=== PATIENT | female | born 1950 | race Caucasian/White ===

== ENCOUNTER 2016-11-19 16:03 | Emergency (ER) | payer OTHER ==
[2016-11-19 16:16] VITALS: BP 103/50; PULSE 70; RESP 18; TEMP 98.7; O2SAT 96
[2016-11-19 16:24] LABS: COLOR YELLOW; LEUKOCYTE ESTERASE,URINE NEGATIVE (NEGATIVE); NITRITE,URINE NEGATIVE (NEGATIVE); PH,URINE 5.5 (5.0-7.5)
[2016-11-19 16:30] LABS: RBC,URINE OCCASIONAL /hpf (0-3); WBC,URINE NONE SEEN /hpf (0-3)
--- NOTE | 2016-11-19 16:48 | UCPHY ---
H & P Time Seen by Provider: 11/19/16 16:06 Patient Type: Established HPI/ROS: HPI Right flank pain, urinary complaints. 66-year-old female by private vehicle. She complains of right-sided flank pain as well as increased frequency with urination and some burning with urination ongoing since November 11. She reports it has gotten slightly worse. She reports having chills an intermittent fever as well. She denies other complaints. ROS: Constitutional: As above. No weakness. Eyes: No discharge. No changes in vision. ENT: No sore throat. No nasal congestion or rhinorrhea. Respiratory: No cough. No shortness of breath. Cardiac: No chest pain, no palpitations. Gastrointestinal: No abdominal pain, no vomiting, no diarrhea. Genitourinary: No hematuria. as above. Musculoskeletal: As above. No neck pain. No myalgias or arthralgias. Skin: No rashes. Neurological: No headache. No focal weakness or altered sensation. Past medical history: High cholesterol. Social history: Here by herself. Physical Exam: General Appearance: Alert, no distress. This patient is responding to questions appropriately and in full sentences. This patient appears well- hydrated and well-nourished. Eyes: Pupils equal and round no pallor or injection. No lid edema, erythema or injection. Gastrointestinal: Abdomen is soft and nontender, no masses, bowel sounds normal. No focal tenderness at McBurney's point. No Allen sign. Neurological: Motor sensory function is grossly intact. Cranial nerves are normal. Gait is normal. Skin: Warm and dry, no rashes. Musculoskeletal: No CVA tenderness on palpation. Extremities are symmetrical. All joints range without pain or impingement. Psychiatric: No agitation. No depression. Database: EKG: Imaging: Procedures: Emergency department course: Urine sample obtained. Her vital signs have been reviewed. She is afebrile. She declined any pain medication. 4:50 p.m., results of urinalysis discussed with the patient. Urinalysis does not indicate infection. However, the patient clinically presents as a urinary tract infection. I discussed the pros and cons of starting her on an antibiotic. We will start her on Keflex at urgent care and she will be provided with a prescription for this medication. Plan will be to have her follow up with her primary care physician, Dr. Dalal, on Thursday for re- evaluation or return here for re-evaluation. Immediate return to Urgent Care/ emergency department precautions were discussed with her. She feels comfortable with this plan. All of her questions were answered. She was discharged in good condition. Differential Diagnosis: The differential diagnosis on this patient includes but is not limited to urinary tract infection. This represents a partial list of diagnoses considered. These considerations are based on history, physical exam, past history, reassessment and diagnostic testing. Smoking Status: Never smoked Constitutional: Initial Vital Signs Temperature (C) 37.1 C 11/19/16 16:14 Heart Rate 70 11/19/16 16:14 Respiratory Rate 18 11/19/16 16:14 Blood Pressure 103/50 L 11/19/16 16:14 O2 Sat (%) 96 11/19/16 16:14 Allergies/Adverse Reactions: No Known Allergies Allergy (Unverified 02/20/16 08:24) Home Medications: Medication Instructions Recorded Cephalexin [Keflex (*)] 500 mg PO Q6 7 Days 11/19/16 Gemfibrozil 11/19/16 Medical Decision Making - Data Points Laboratory Results: 11/19/16 16:20 Urine Color YELLOW Urine Appearance CLEAR Urine pH 5.5 (5.0-7.5) Ur Specific [place] <= 1.005 (1.002-1.030) Urine Protein NEGATIVE (NEGATIVE) Urine Ketones NEGATIVE (NEGATIVE) Urine Blood TRACE H (NEGATIVE) Urine Nitrate NEGATIVE (NEGATIVE) Urine Bilirubin NEGATIVE (NEGATIVE) Urine Urobilinogen 0.2 EU (0.2-1.0) Ur Leukocyte Esterase NEGATIVE (NEGATIVE) Urine RBC OCCASIONAL /hpf (0-3) Urine WBC NONE SEEN /hpf (0-3) Ur Epithelial Cells NONE SEEN /lpf (NONE-1+) Ur Renal Epithelial Cell Cancelled Urine Crystals Cancelled Ammonium Urate Crystals Cancelled Calcium Carbonate Cryst Cancelled Calcium Phosphate Cryst Cancelled Calcium Oxalate Crystal Cancelled Leucine Crystals Cancelled Cystine Crystals Cancelled Uric Acid Crystals Cancelled Triple Phos Crystals Cancelled Sodium Urate Crystals Cancelled Sulfonamide Crystals Cancelled Cholesterol Crystals Cancelled Tyrosine Crystals Cancelled Bilirubin Crystals Cancelled Amorphous Sediment Cancelled Urine Bacteria Cancelled Epithelial Casts Cancelled Fatty Casts Cancelled Hyaline Casts Cancelled Granular Casts Cancelled Waxy Casts Cancelled Broad Casts Cancelled RBC Casts Cancelled WBC Casts Cancelled Urine Mucus Cancelled Urine Trichomonas Cancelled Urine Yeast Cancelled Urine Sperm Cancelled Ur Oval Fat Bodies Cancelled Ur Free Fat Droplets Cancelled Ur Unidentified Matter Cancelled Ur Culture Indicated? NOT INDICATED (NI) Urine Glucose NEGATIVE (NEGATIVE) Urine Comment Cancelled Departure - Departure Disposition: Home, Routine, Self-Care Clinical Impression: Right flank pain, Dysuria Condition: Good Instructions: Flank Pain (ED), Urinary Tract Infection in Women (ED) Additional Instructions: Read and follow provided instructions. Follow-up with your primary care physician , Dr. Dalal, or 1 of her partners on Thursday for re-evaluation as discussed. If you are unable to get in on Thursday with Dr. Dalal return to Urgent Care for re-evaluation. Most important, return to the emergency department/ urgent care for fever, worsening pain, vomiting or other serious concerns. Take medication as prescribed. Referrals: Saima Dalal MD [Medical Doctor] - As per Instructions Prescriptions: Cephalexin [Keflex (*)] 500 mg PO Q6 7 Days - PQRS PQRS Measurement: 134: Depression screening and followup, PRIME MD-PHQ2 (12 years and older) Over the last 2 weeks, how often have you been bothered by any of the following problems? 1. Feeling down, depressed, or hopeless? 2. Little interest or pleasure in doing things? Answered no to both questions. 130: Documentation of medications. Reviewed all patient medications, doses, route and frequency. 226: Do you smoke? No. 47: 65 and older: Advanced care planning. Patient designates surrogate decision maker as Family. 51: 18 years old and older with diagnosis of COPD, spirometry performance. NA 52: 18 years old and older with COPD and symptoms of COPD or FEV1<60% predicted prescribed a B Agonist. NA
== END 2016-11-19 17:04 | disposition home or self-care (01) ==
LOC: CED 16:03
DX: R10.9 Unspecified abdominal pain (principal); R35.0 Frequency of micturition; R30.0 Dysuria; R68.83 Chills (without fever); E78.00 Pure hypercholesterolemia, unspecified
CPT/HCPCS: 81003-PO; 81015-PO; 99214-PO; G0463-PO

== ENCOUNTER → 2017-09-02 | Outpatient (CLI) | payer OTHER | LOC: BHFA 09:00 | PROVIDERS: ATTEND Internal Medicine Cardiovascular Disease | DX: I25.10 Atherosclerotic heart disease of native coronary artery without angina pectoris (principal); R06.02 Shortness of breath; E78.5 Hyperlipidemia, unspecified; R53.83 Other fatigue ==

== ENCOUNTER → 2017-11-17 | Outpatient (CLI) | payer OTHER | LOC: FIMAGING 12:26 | PROVIDERS: ATTEND Family Medicine | DX: R22.2 Localized swelling, mass and lump, trunk (principal) ==

== ENCOUNTER 2019-04-11 19:45 | Emergency (ER) | payer OTHER | END 2019-04-11 20:50 | disposition home or self-care (01) ==